=== PATIENT | female | born 1940 | race Caucasian/White ===

== ENCOUNTER → 2016-10-28 | Outpatient (CLI) | payer MEDICARE, OTHER ==
[~2016-10-28] MED LIST: BACTROBAN2% TP; BENTYL20 MG; CALCIUM500 MG PO; CALCIUM600 MG PO; CHROMIUM PIC1000 MCG PO; CHROMIUM PICO500 MCG PO; COMBIVENT1 ARO IH; COREG3.125 MG PO; DALI500T PO; FISH OIL500 MG PO; HYDROCHLOROTHIA25 MG PO; HYDROCODONE BIT1 T11 PO; K-BICARB99 MG PO; L-LYSINE500 MG PO; LEVOFLOXACIN500 MG PO; LIDEX0.05% T; LISINOPRIL10 MG PO; NORVASC10 MG PO; PRAVACHOL10 MG PO; PRILOSEC20 MG PO; PROBIOTIC FORMU1 CAP PO; PROBIOTIC PEAR1 EACH PO; PROLASTIN C MR; PROVENTIL0.09 MG/A1 INH; RANITIDINE150 MG PO; SINGULAIR10 MG PO; SYMBICORT1 AE1 INH; TRICOR48 MG PO; TUSSI-ORGANID3840 ML PO; ZITHROMAX250 MG PO; ZOFRAN4 MG PO; ZOVIRAX800 MG PO
== END | disposition home or self-care (01) ==
LOC: NM 02:28
DX: R19.7 Diarrhea, unspecified (principal); R10.11 Right upper quadrant pain

== ENCOUNTER → 2016-11-13 | Day surgery (SDC) | payer MEDICARE, OTHER ==
[2016-11-11 12:12] LABS: BASO # 0.1 10*3/uL (0.0-0.1); BASO % 1.4 % (0.0-1.0); EOS # 0.1 10*3/uL (0.0-0.4); EOS % 2.4 % (1.0-4.0); HEMATOCRIT 42.4 % (37.0-47.0); HEMOGLOBIN 13.8 g/dl (12.0-16.0); LYMPH # 1.6 10*3/uL (1.3-4.4); MEAN CORPUSCULAR HGB 29.3 pg (27.0-31.0); MEAN CORPUSCULAR HGB CONC 32.5 g/dl (33.0-37.0); MEAN PLATELET VOLUME 9.4 fl (9.6-12.3); MONO # 0.6 10*3/uL (0.1-1.0); MONO % 9.6 % (3.0-9.0); NEUT # 3.4 10*3/uL (2.3-7.9); NEUT % 58.4 % (47.0-73.0); PLATELET COUNT AUTOMATED 302 10*3/uL (130-400); RED BLOOD COUNT 4.71 10*6/uL (4.10-5.10); RED CELL DISTRI WIDTH 13.4 % (0-14.5); WHITE BLOOD COUNT 5.8 10*3/uL (4.8-10.8)
[2016-11-11 12:15] LABS: BILIRUBIN NEGATIVE (NEGATIVE); BLOOD NEGATIVE (NEGATIVE); CLARITY SL CLOUDY (CLEAR); COLOR YELLOW (YELLOW); GLUCOSE NEGATIVE (NEGATIVE); KETONE NEGATIVE (NEGATIVE); LEUKO ESTERASE NEGATIVE (NEGATIVE); NITRITE NEGATIVE (NEGATIVE); PH 7.5 (5.0-9.0); PROTEIN NEGATIVE (NEGATIVE); SPECIFIC GRAVITY 1.015 (1.005-1.030); UROBILINOGEN 0.2 E.U./dl (0.2-1.0)
[2016-11-11 12:39] LABS: ALBUMIN 3.9 gm/dl (3.1-4.5); ALKALINE PHOSPHATASE 60 U/L (45-117); BILIRUBIN, DIRECT 0.2 mg/dL (0.0-0.2); BILIRUBIN, TOTAL 0.5 mg/dl (0.2-1.0); BUN 13 mg/dl (7-24); CARBON DIOXIDE 32 mmol/L (21-32); CHLORIDE 105 mmol/L (98-107); EST GLOM FILT AFRICAN AMERICAN > 60 ml/min; GLUCOSE 104 mg/dL (65-99); POTASSIUM 4.2 mmol/L (3.5-5.1); SGOT/AST 13 IU/L (3-35); SGPT/ALT 19 U/L (12-78); SODIUM 143 mmol/L (136-145); TOTAL PROTEIN 7.3 gm/dL (6.4-8.2)
[2016-11-11 12:43] LABS: PROTHROMBIN TIME 11.1 SECONDS (9.0-12.4)
[2016-11-11 12:45] LABS: BACTERIA TRACE
[2016-11-13] VITALS (8 sets, daily range): BP systolic 151–209; BP diastolic 82–120
[~2016-11-13] VITALS: Ht 170.1 cm; Wt 73.9 kg
--- NOTE | ~2016-11-13 | O ---
[place], [place] OPERATIVE NOTE NAME: ANTOINETTE PAYNE [facility] #: [id number] UNIT #: [id number] ROOM: DOCTOR: KETAN MORRISSEY MD BIRTHDATE: [birth year] DOS: 11/13/2016 PREOPERATIVE DIAGNOSIS: Biliary dyskinesia. POSTOPERATIVE DIAGNOSIS: Biliary dyskinesia. PROCEDURE: Laparoscopic cholecystectomy. SURGEON: Ketan Morrissey MD CHEMICAL SALES REPRESENTATIVE: MS3. ANESTHESIA: General with endotracheal intubation. INDICATIONS: This is a 76-year-old lady who was admitted today with a history of biliary dyskinesia. She is here for a laparoscopic cholecystectomy. The procedure and its complications were explained to the patient in detail preoperatively. Complications that were discussed included but were not limited to bleeding, infection, hematoma/seroma/abscess formation, biloma formation, inadvertent injury to common bile duct, incisional hernia formation and prolonged postoperative pain. She agreed to proceed. DESCRIPTION OF PROCEDURE: After identifying the patient, the patient was brought to the operating suite and laid in the supine position. After induction of general anesthesia, the parts were painted and draped in the usual sterile fashion and a time-out procedure was called in the usual manner. A transverse incision below the umbilicus was made. The skin and the subcutaneous tissue were incised. The fascia was incised and the peritoneum was opened. Two stay sutures were taken on either side with the help of 0 Vicryl and Nestor port of 12 mm was introduced into the peritoneal cavity and a pneumoperitoneum was created. Under direct vision, an epigastric incision of 10 mm and two 5 mm incisions were made in the right upper quadrant and appropriate sized port was introduced. The gallbladder was retracted superiorly and laterally. The cystic duct and the cystic artery were meticulously dissected and the critical view of safety was obtained, the triangle of Calot was identified. The cystic artery and the cystic duct were then sequentially clipped 3 times and cut between the first and the second clip. The gallbladder was then removed from the bed of the gallbladder and removed from the peritoneal cavity and sent for histopathological diagnosis. Hemostasis was achieved in the bed of the gallbladder. Thereafter, the right upper quadrant and the epigastric ports were removed and there was no bleeding seen. The umbilical port was also removed and the 2 stay sutures were tied together. Local anesthesia infiltrated on the skin edges and they were all approximated with the help of 4-0 Vicryl in a subcuticular running fashion. Dressings were given. The patient tolerated the procedure well and was extubated uneventfully and brought back to the recovery room in stable fashion. Dr. Ketan Morrissey, the attending surgeon, was present throughout the operating case. [place], [place] OPERATIVE NOTE NAME: [facility]NE [facility] [id number] UNIT #: [id number] ROOM: DOCTOR: KETAN MORRISSEY MD BIRTHDATE: [birth year] Ketan Morrissey MD CM:OPRECORD:OPERATIVE NOTE 1221 [id number] KETAN MORRISSEY MD 11/13/16 1244 interface
== END | disposition home or self-care (01) ==
LOC: SDC 11-11 11:00
PROVIDERS: Surgery
DX: K80.10 Calculus of gallbladder with chronic cholecystitis without obstruction (principal); J45.909 Unspecified asthma, uncomplicated; J44.9 Chronic obstructive pulmonary disease, unspecified; K21.9 Gastro-esophageal reflux disease without esophagitis; I10 Essential (primary) hypertension; Z87.01 Personal history of pneumonia (recurrent); Z86.14 Personal history of Methicillin resistant Staphylococcus aureus infection; Z83.3 Family history of diabetes mellitus; Z87.891 Personal history of nicotine dependence

== ENCOUNTER → 2017-02-08 | Outpatient (CLI) | payer MEDICARE, OTHER ==
[2017-02-08 10:53] LABS: CHOLESTEROL 196 mg/dL (<200); HDL CHOLESTEROL 68 mg/dl (40-60); LDL CHOLESTEROL 106 mg/dL (9-159); TRIGLYCERIDES 110 mg/dl (<150); VLDL CHOLESTEROL 22 mg/dL (6-40)
== END | disposition home or self-care (01) ==
LOC: LAB 09:29
PROVIDERS: Family Medicine
DX: E78.5 Hyperlipidemia, unspecified (principal); E55.9 Vitamin D deficiency, unspecified

== ENCOUNTER 2017-03-10 20:00 | Emergency (ER) | payer OTHER, MEDICARE ==
[~2017-03-10] VITALS: Ht 170.1 cm; Wt 72.6 kg
== END 2017-03-10 22:37 | disposition home or self-care (01) ==
LOC: ED 20:00
DX: S39.012A Strain of muscle, fascia and tendon of lower back, initial encounter (principal); S16.1XXA Strain of muscle, fascia and tendon at neck level, initial encounter; M25.512 Pain in left shoulder; Z88.6 Allergy status to analgesic agent; Z88.1 Allergy status to other antibiotic agents; Z79.899 Other long term (current) drug therapy; V89.2XXA Person injured in unspecified motor-vehicle accident, traffic, initial encounter; Y93.89 Activity, other specified; Y92.413 State road as the place of occurrence of the external cause; Y99.8 Other external cause status

== ENCOUNTER → 2017-04-20 | Outpatient (CLI) | payer MEDICARE, OTHER | END | disposition home or self-care (01) | LOC: RAD 13:17 | DX: M54.42 Lumbago with sciatica, left side (principal); M25.551 Pain in right hip; M25.552 Pain in left hip; V89.2XXD Person injured in unspecified motor-vehicle accident, traffic, subsequent encounter ==

== ENCOUNTER 2018-06-28 05:29 | Emergency (ER) | payer MEDICARE, OTHER ==
[~2018-06-28] VITALS: Ht 170.1 cm; Wt 70.3 kg
--- NOTE | ~2018-06-28 | EKG ---
[place], [place] ELECTROCARDIOGRAM REPORT NAME: ANTOINETTE PAYNE UNIT #: [id number] [facility]: [facility] BIRTHDATE: [birth year] [facility] Test Date: 2018-06-28 Test Time: 05:41:43 Pat Name: ANTOINETTE PAYNE Department: Room: Gender: F Major Donor Coordinator: : 1940 Requested By: ETELVINA NELSON Order Number: [id number] Reading MD: Yoshi Blackwell MD Measurements Intervals [place] Rate: 91 P: 70 NV: 221 QRS: -24 QRSD: 92 T: 70 QT: 361 QTc: 445 Interpretive Statements Sinus rhythm Prolonged NV interval Probable left atrial enlargement Left ventricular hypertrophy cannot be ruled out Anterior Q waves, possibly due to LVH Baseline wander in lead(s) V1,V2,V3,V4,V5,V6 Compared to ECG 06/17/2018 02:27:38 Q waves now present Electronically Signed On 06-28-2018 20:04:04 PDT by Yoshi Blackwell MD CM:EKGRPT:ELECTROCARDIOGRAM REPORT [id number] ETELVINA HAWK DRAFT REPORT ETELVINA NELSON DO
[~2018-06-28 05:29] MED LIST changes: +ACCUNEB 0.1.25 MG/1 INH; +APRESOLINE25 MG PO; +BROVANA15 MCG/2 M INH; +HYDROCHLOROTHIA25 M1 PO; +LISINOPRIL40 MG PO; +PRINIVIL10 MG PO; +RANITIDINE 7575 MG PO; -RANITIDINE150 MG PO; +VISTARIL25 MG PO
[2018-06-28] MEDS ORDERED: MULTIVITAMINS1 EAC5 PO (05:37)
[2018-06-28] MEDS ORDERED: CALCIUM + VITA1 EAC2 PO (05:37)
[2018-06-28] MEDS ORDERED: POTASSIUM99 M5 PO (05:38)
[2018-06-28] MEDS ORDERED: CO Q10100 MG PO (05:38)
[2018-06-28 05:46] LABS: BASO # 0.1 10*3/uL (0.0-0.1); BASO % 0.4 % (0.0-1.0); EOS # 0.1 10*3/uL (0.0-0.4); EOS % 0.3 % (1.0-4.0); HEMATOCRIT 39.4 % (37.0-47.0); HEMOGLOBIN 13.6 g/dl (12.0-16.0); LYMPH # 1.4 10*3/uL (1.3-4.4); LYMPH % 9.5 % (27.0-41.0); MEAN CORPUSCULAR HGB 29.7 pg (27.0-31.0); MEAN CORPUSCULAR HGB CONC 34.5 g/dl (33.0-37.0); MEAN PLATELET VOLUME 8.9 fl (9.6-12.3); MONO # 1.1 10*3/uL (0.1-1.0); MONO % 7.1 % (3.0-9.0); NEUT # 12.4 10*3/uL (2.3-7.9); NEUT % 82.2 % (47.0-73.0); PLATELET COUNT AUTOMATED 272 10*3/uL (130-400); RED BLOOD COUNT 4.58 10*6/uL (4.10-5.10); RED CELL DISTRI WIDTH 12.3 % (0-14.5); WHITE BLOOD COUNT 15.1 10*3/uL (4.8-10.8)
[2018-06-28] MEDS ORDERED: AUGMENTIN 875-875 MG PO (05:57)
[2018-06-28 06:02] LABS: ALBUMIN 3.5 gm/dl (3.1-4.5); ALKALINE PHOSPHATASE 40 U/L (45-117); BUN 10 mg/dl (7-24); CHLORIDE 102 mmol/L (98-107); POTASSIUM 3.4 mmol/L (3.5-5.1); SGOT/AST 13 IU/L (3-35); SGPT/ALT 21 U/L (12-78); SODIUM 137 mmol/L (136-145); TOTAL PROTEIN 6.9 gm/dL (6.4-8.2)
[2018-06-28 06:18] LABS: TROPONIN I < 0.015 ng/ml (<0.045)
== END 2018-06-28 06:27 | disposition home or self-care (01) ==
LOC: ED 05:29
PROVIDERS: Student in an Organized Health Care Education/Training Program
DX: J32.9 Chronic sinusitis, unspecified (principal); I10 Essential (primary) hypertension; J44.9 Chronic obstructive pulmonary disease, unspecified; K21.9 Gastro-esophageal reflux disease without esophagitis; Z88.8 Allergy status to other drugs, medicaments and biological substances; Z79.899 Other long term (current) drug therapy; Z90.49 Acquired absence of other specified parts of digestive tract; Z87.891 Personal history of nicotine dependence

== ENCOUNTER → 2018-09-27 | Outpatient (CLI) | payer MEDICARE, OTHER ==
[~2018-09-27] MED LIST changes: +AUGMENTIN 875-875 MG PO; +CALCIUM + VITA1 EAC2 PO; +CO Q10100 MG PO; +MULTIVITAMINS1 EAC5 PO; +POTASSIUM99 M5 PO
[2018-09-29 13:08] LABS: ACID FAST SPEC PROCESSING Concentration (.)
== END | disposition home or self-care (01) ==
LOC: LAB 16:08
PROVIDERS: Internal Medicine Pulmonary Disease
DX: J01.20 Acute ethmoidal sinusitis, unspecified (principal)

== ENCOUNTER → 2018-10-26 | Outpatient (CLI) | payer MEDICARE, OTHER ==
[~2018-10-26] MED LIST changes: +DOXYCYCLINE100 M3 PO; +PREDNISONE50 MG PO; +ROBITUSSIN DM 101 OZ PO
== END | disposition home or self-care (01) ==
LOC: CARD 10-19 09:30
DX: Z01.810 Encounter for preprocedural cardiovascular examination (principal); I10 Essential (primary) hypertension; R06.09 Other forms of dyspnea

== ENCOUNTER 2019-01-06 14:34 | Emergency (ER) | payer MEDICARE, OTHER ==
[~2019-01-06] VITALS: Wt 65.8 kg
[~2019-01-06 14:34] MED LIST changes: -DOXYCYCLINE100 M3 PO; -PREDNISONE50 MG PO; -ROBITUSSIN DM 101 OZ PO
[2019-01-06 15:28] LABS: BASO # 0.1 10*3/uL (0.0-0.1); BASO % 0.7 % (0.0-1.0); EOS % 0.4 % (1.0-4.0); HEMATOCRIT 45.4 % (37.0-47.0); HEMOGLOBIN 15.2 g/dl (12.0-16.0); LYMPH % 13.8 % (27.0-41.0); MEAN CELL VOLUME 88.7 fl (81.0-99.0); MEAN CORPUSCULAR HGB 29.7 pg (27.0-31.0); MEAN CORPUSCULAR HGB CONC 33.5 g/dl (33.0-37.0); MEAN PLATELET VOLUME 9.4 fl (9.6-12.3); MONO # 0.9 10*3/uL (0.1-1.0); MONO % 11.3 % (3.0-9.0); NEUT # 5.6 10*3/uL (2.3-7.9); NEUT % 73.5 % (47.0-73.0); PLATELET COUNT AUTOMATED 284 10*3/uL (130-400); RED BLOOD COUNT 5.12 10*6/uL (4.10-5.10); RED CELL DISTRI WIDTH 13.9 % (0-14.5); WHITE BLOOD COUNT 7.6 10*3/uL (4.8-10.8)
[2019-01-06 15:57] LABS: ALBUMIN 3.8 gm/dl (3.1-4.5); ALKALINE PHOSPHATASE 50 U/L (45-117); BUN 21 mg/dl (7-24); CHLORIDE 103 mmol/L (98-107); CREATININE 0.72 mg/dL (0.55-1.02); POTASSIUM 3.9 mmol/L (3.5-5.1); SGOT/AST 12 IU/L (3-35); SGPT/ALT 19 U/L (12-78); SODIUM 138 mmol/L (136-145); TOTAL PROTEIN 7.8 gm/dL (6.4-8.2)
[2019-01-06] MEDS ORDERED: PREDNISONE50 MG PO (16:14)
[2019-01-06] MEDS ORDERED: ROBITUSSIN DM 101 OZ PO (16:14)
[2019-01-06] MEDS ORDERED: DOXYCYCLINE100 M3 PO (16:14)
== END 2019-01-06 16:38 | disposition home or self-care (01) ==
LOC: ED 14:34
PROVIDERS: Nurse Practitioner Family
DX: J44.1 Chronic obstructive pulmonary disease with (acute) exacerbation (principal); I10 Essential (primary) hypertension; E78.5 Hyperlipidemia, unspecified; Z88.8 Allergy status to other drugs, medicaments and biological substances; Z88.6 Allergy status to analgesic agent; Z79.899 Other long term (current) drug therapy; Z79.2 Long term (current) use of antibiotics; Z87.891 Personal history of nicotine dependence; Z90.49 Acquired absence of other specified parts of digestive tract

== ENCOUNTER → 2019-12-04 | Outpatient (CLI) | payer MEDICARE, OTHER ==
[~2019-12-04] MED LIST changes: +DOXYCYCLINE100 M3 PO; +PREDNISONE50 MG PO; +ROBITUSSIN DM 101 OZ PO
== END ==
LOC: RAD 10:00
DX: M85.89 Other specified disorders of bone density and structure, multiple sites (principal); M85.852 Other specified disorders of bone density and structure, left thigh; M85.851 Other specified disorders of bone density and structure, right thigh; M85.88 Other specified disorders of bone density and structure, other site; Z78.0 Asymptomatic menopausal state

== ENCOUNTER 2020-05-18 01:31 | Emergency (ER) | payer MEDICARE, OTHER ==
[~2020-05-18] VITALS: Ht 170.2 cm
[2020-05-18 02:44] LABS: BASO # 0.1 10*3/uL (0.0-0.1); BASO % 0.4 % (0.0-1.0); EOS # 0.1 10*3/uL (0.0-0.4); EOS % 0.6 % (1.0-4.0); HEMATOCRIT 40.8 % (37.0-47.0); LYMPH # 1.6 10*3/uL (1.3-4.4); LYMPH % 7.7 % (27.0-41.0); MEAN CELL VOLUME 87.7 fl (81.0-99.0); MEAN CORPUSCULAR HGB 29.2 pg (27.0-31.0); MEAN CORPUSCULAR HGB CONC 33.3 g/dl (33.0-37.0); MEAN PLATELET VOLUME 9.2 fl (9.6-12.3); MONO # 1.2 10*3/uL (0.1-1.0); NEUT # 17.7 10*3/uL (2.3-7.9); NEUT % 84.8 % (47.0-73.0); PLATELET COUNT AUTOMATED 280 10*3/uL (130-400); RED BLOOD COUNT 4.65 10*6/uL (4.10-5.10); RED CELL DISTRI WIDTH 12.9 % (0-14.5); WHITE BLOOD COUNT 20.8 10*3/uL (4.8-10.8)
[2020-05-18 02:55] LABS: ACT PARTIAL THROMBO TIME 28.2 SECONDS (20.0-32.1); INTERNATIONAL NORM RATIO 1.2 (2.0-3.5)
[2020-05-18 03:00] LABS: ALBUMIN 3.2 gm/dl (3.1-4.5); ALKALINE PHOSPHATASE 45 U/L (45-117); BUN 10 mg/dl (7-24); CHLORIDE 101 mmol/L (98-107); CREATININE 0.68 mg/dL (0.55-1.02); LIPASE 79 U/L (73-393); SGOT/AST 13 IU/L (3-35); SGPT/ALT 17 U/L (12-78); SODIUM 136 mmol/L (136-145); TOTAL PROTEIN 7.2 gm/dL (6.4-8.2)
[2020-05-18 03:13] LABS: TROPONIN I < 0.015 ng/ml (<0.045)
[2020-05-18] MEDS ORDERED: ZITHROMAX250 MG PO (06:41)
== END 2020-05-18 06:58 | disposition home or self-care (01) ==
LOC: ED 01:31
PROVIDERS: Emergency Medicine Emergency Medical Services
DX: J20.9 Acute bronchitis, unspecified (principal); I10 Essential (primary) hypertension; K21.9 Gastro-esophageal reflux disease without esophagitis; J44.9 Chronic obstructive pulmonary disease, unspecified; Z20.828 Contact with and (suspected) exposure to other viral communicable diseases; Z79.899 Other long term (current) drug therapy; Z88.8 Allergy status to other drugs, medicaments and biological substances

== ENCOUNTER → 2020-06-13 | Outpatient (CLI) | payer MEDICARE, OTHER | END | disposition home or self-care (01) | LOC: COVID19 12:57 | DX: Z11.59 Encounter for screening for other viral diseases (principal); R69 Illness, unspecified ==

== ENCOUNTER → 2020-11-05 | Outpatient (CLI) | payer MEDICARE, OTHER | END | disposition home or self-care (01) | LOC: COVID19 14:43 | PROVIDERS: ATTEND Physician Assistant | DX: Z20.822 Contact with and (suspected) exposure to COVID-19 (principal) ==

== ENCOUNTER → 2022-01-29 | Outpatient (CLI) | payer MEDICARE, OTHER | END | disposition home or self-care (01) | LOC: US 13:00 | PROVIDERS: ATTEND Nurse Practitioner Women's Health | DX: R10.2 Pelvic and perineal pain (principal) ==